=== PATIENT | male | born 1935 | race Two or more races ===

== ENCOUNTER 2021-06-25 17:34 | Inpatient (IN) | payer OTHER ==
[~2021-06-25] VITALS: Ht 175.3 cm; Wt 59.9 kg
[2021-06-25] MEDS ORDERED: NIFEDIPINE20 MG (18:03)
[2021-06-25] MEDS ORDERED: PANTOPRAZOLE SO40 M1 (18:03)
[2021-06-25] MEDS ORDERED: XANAX1 MG (18:05)
[2021-06-25] MEDS ORDERED: GLIMEPIRIDE2 M1 (18:05)
[2021-06-25] MEDS ORDERED: ENALAPRIL MALEA10 MG (18:05)
[2021-06-28] MEDS ORDERED: NABUMETONE500 MG (15:58)
[2021-06-28] MEDS ORDERED: ATORVASTATIN CA10 MG (15:58)
[2021-06-28] MEDS ORDERED: LISINOPRIL2.5 MG (15:58)
== END 2021-07-02 17:40 | disposition home or self-care (01) | DRG 394 ==
LOC: ER 17:34 → SURG 06-26 13:25
PROVIDERS: ADMIT Surgery; ATTEND Surgery
PROC: BW21YZZ Computerized Tomography (CT Scan) of Abdomen and Pelvis using Other Contrast (ICD-10-PCS; 2021-06-26)
PROC: CB2YYZZ Tomographic (Tomo) Nuclear Medicine Imaging of Respiratory System using Other Radionuclide (ICD-10-PCS; principal; 2021-06-29)
DX: K40.30 Unilateral inguinal hernia, with obstruction, without gangrene, not specified as recurrent (principal); K56.699 Other intestinal obstruction unspecified as to partial versus complete obstruction; E86.0 Dehydration; E87.8 Other disorders of electrolyte and fluid balance, not elsewhere classified; I10 Essential (primary) hypertension; Z20.822 Contact with and (suspected) exposure to COVID-19; E11.9 Type 2 diabetes mellitus without complications; Z79.4 Long term (current) use of insulin
CPT/HCPCS: 71275

== ENCOUNTER 2021-07-06 08:18 | Inpatient (IN) | payer OTHER ==
[~2021-07-06] VITALS: Ht 175.3 cm; Wt 58.5 kg
[~2021-07-06 08:18] MED LIST: ATORVASTATIN CA10 MG; ENALAPRIL MALEA10 MG; GLIMEPIRIDE2 M1; LISINOPRIL2.5 MG; NABUMETONE500 MG; NIFEDIPINE20 MG; PANTOPRAZOLE SO40 M1; XANAX1 MG
[2021-07-06] MEDS ORDERED: GLIMEPIRIDE2 MG (08:59)
[2021-07-06] MEDS ORDERED: LIPITOR40 M1 (08:59)
[2021-07-06] MEDS ORDERED: NIFEDIPINE20 MG PO (08:59)
[2021-07-06] MEDS ORDERED: ZESTRIL2.5 MG PO (09:00)
[2021-07-06] MEDS ORDERED: XANAX0.25 MG PO (09:00)
[2021-07-06] MEDS ORDERED: PROTONIX20 MG PO (09:00)
[2021-07-26] MEDS ORDERED: ISOSORBIDE MONO30 MG PO (12:45)
[2021-07-26] MEDS ORDERED: CANDESARTAN CILE8 MG PO (12:45)
[2021-07-26] MEDS ORDERED: TOPROL XL50 M1 PO (12:45)
[2021-07-26] MEDS ORDERED: TOPROL XL25 M1 PO (12:45)
[2021-07-26] MEDS ORDERED: SPIRONOLACTONE25 MG PO (12:45)
== END 2021-07-26 18:07 | disposition home or self-care (01) | DRG 393 ==
LOC: ER 08:18 → MEDI 07-07 14:13
PROVIDERS: ADMIT Internal Medicine; ATTEND Internal Medicine
PROC: 02HV33Z Insertion of Infusion Device into Superior Vena Cava, Percutaneous Approach (ICD-10-PCS; 2021-07-07)
PROC: 4A12X4Z Monitoring of Cardiac Electrical Activity, External Approach (ICD-10-PCS; principal; 2021-07-08)
DX: K40.30 Unilateral inguinal hernia, with obstruction, without gangrene, not specified as recurrent (principal); I21.A1 Myocardial infarction type 2; J69.0 Pneumonitis due to inhalation of food and vomit; I50.22 Chronic systolic (congestive) heart failure; N17.8 Other acute kidney failure; I42.0 Dilated cardiomyopathy; I11.0 Hypertensive heart disease with heart failure; I50.9 Heart failure, unspecified; E86.0 Dehydration

== ENCOUNTER 2021-08-31 12:11 | Inpatient (IN) | payer OTHER ==
[~2021-08-31] VITALS: Ht 175.3 cm; Wt 58.5 kg
[~2021-08-31 12:11] MED LIST changes: +CANDESARTAN CILE8 MG PO; +GLIMEPIRIDE2 MG; +ISOSORBIDE MONO30 MG PO; +LIPITOR40 M1; +NIFEDIPINE20 MG PO; +PROTONIX20 MG PO; +SPIRONOLACTONE25 MG PO; +TOPROL XL25 M1 PO; +TOPROL XL50 M1 PO; +XANAX0.25 MG PO; +ZESTRIL2.5 MG PO
[2021-09-08] MEDS ORDERED: LASIX20 MG PO (13:57)
== END 2021-09-08 16:52 | disposition home or self-care (01) | DRG 699 ==
LOC: ER 12:11 → MEDJ 09-01 09:32
PROVIDERS: ADMIT Internal Medicine; ATTEND Internal Medicine
PROC: 4A12X4Z Monitoring of Cardiac Electrical Activity, External Approach (ICD-10-PCS; principal; 2021-09-02)
PROC: B24BYZZ Ultrasonography of Heart with Aorta using Other Contrast (ICD-10-PCS; 2021-09-05)
PROC: BW24ZZZ Computerized Tomography (CT Scan) of Chest and Abdomen (ICD-10-PCS; 2021-09-06)
DX: E11.22 Type 2 diabetes mellitus with diabetic chronic kidney disease (principal); I13.0 Hypertensive heart and chronic kidney disease with heart failure and stage 1 through stage 4 chronic kidney disease, or unspecified chronic kidney disease; I50.22 Chronic systolic (congestive) heart failure; N39.0 Urinary tract infection, site not specified; R65.10 Systemic inflammatory response syndrome (SIRS) of non-infectious origin without acute organ dysfunction; N17.9 Acute kidney failure, unspecified; N18.9 Chronic kidney disease, unspecified; L89.152 Pressure ulcer of sacral region, stage 2; R60.0 Localized edema; E11.51 Type 2 diabetes mellitus with diabetic peripheral angiopathy without gangrene; B96.20 Unspecified Escherichia coli [E. coli] as the cause of diseases classified elsewhere; I25.10 Atherosclerotic heart disease of native coronary artery without angina pectoris; R53.81 Other malaise; Z74.01 Bed confinement status; Z79.84 Long term (current) use of oral hypoglycemic drugs